=== PATIENT | female | born 1990 | race Caucasian/White ===

== ENCOUNTER → 2017-07-23 | Outpatient (CLI) | payer OTHER ==
[~2017-07-23] MED LIST: ASCO500 PO; IBUP800 PO; IRON325 MG PO; NAPR500 PO; OXYACE5T PO
== END ==
LOC: LAB 16:34 → LAB SHORT 16:34
DX: L08.9 Local infection of the skin and subcutaneous tissue, unspecified (principal)
CPT/HCPCS: 87070; 87205